=== PATIENT | female | born 1945 | race Caucasian/White ===

== ENCOUNTER 2020-06-09 09:57 | Emergency (ER) | payer OTHER ==
[~2020-06-09 09:57] MED LIST: ATENOLOL5 PO; DIO160 PO; MET2.5 PO; SIMVASTATIN40 MG PO
[2020-06-09 10:08] VITALS: Ht 134.6 cm
[2020-06-09 11:36] LABS: ALBUMIN 3.6 g/dL (3.4-5.0); ALKALINE PHOSPHATASE 146 U/L (46-116); ALT/SGPT 30 U/L (14-59); AST/SGOT 34 U/L (15-37); BILIRUBIN TOTAL 0.6 mg/dL (0.20-1.00); CALCIUM 8.9 mg/dL (8.5-10.1); CARBON DIOXIDE 30.3 mmol/L (21-32); CHLORIDE SERUM 102 mmol/L (98-107); CREATININE SERUM 0.8 mg/dL (0.6-1.0); GLUCOSE SERUM 77 mg/dL (74-106); POTASSIUM SERUM 3.7 mmol/L (3.5-5.1); SODIUM SERUM 138 mmol/L (136-145); TOTAL PROTEIN, SERUM 7.6 g/dL (6.4-8.2); URIC ACID 3.4 mg/dL (2.6-6.0)
[2020-06-09 11:44] LABS: BASOPHIL % 0.7 % (0-2); PLATELET COUNT 292 x10^3mcL (130-400); RED CELL DISTRIBUTION WIDTH 13.8 % (11.5-14.5)
[2020-06-09 12:41] VITALS: BP 194/94
== END 2020-06-09 12:41 | disposition home or self-care (01) ==
LOC: ED 09:57
PROVIDERS: Emergency Medicine
DX: M25.512 Pain in left shoulder (principal); I10 Essential (primary) hypertension; M06.9 Rheumatoid arthritis, unspecified; Z91.041 Radiographic dye allergy status
CPT/HCPCS: J7512; Q0092